=== PATIENT | male | born 1950 | race Caucasian/White ===

== ENCOUNTER 2017-12-03 04:06 | Outpatient (CLI) | payer MEDICARE, BC | END 2017-12-03 23:59 | disposition home or self-care (01) | LOC: DIABETIC 04:06 | PROVIDERS: ATTEND Family Medicine | DX: E11.9 Type 2 diabetes mellitus without complications (principal) | CPT/HCPCS: G0108 ==

== ENCOUNTER 2018-03-09 02:03 | Outpatient (CLI) | payer MEDICARE, BC | END 2018-03-09 23:59 | disposition home or self-care (01) | LOC: DIABETIC 02:03 | PROVIDERS: ATTEND Family Medicine | DX: E11.65 Type 2 diabetes mellitus with hyperglycemia (principal) | CPT/HCPCS: G0108 ==

== ENCOUNTER 2018-06-10 00:31 | Outpatient (CLI) | payer MEDICARE, BC | END 2018-06-10 23:59 | disposition home or self-care (01) | LOC: DIABETIC 00:31 | PROVIDERS: ATTEND Family Medicine | DX: E11.65 Type 2 diabetes mellitus with hyperglycemia (principal); Z79.82 Long term (current) use of aspirin; Z79.84 Long term (current) use of oral hypoglycemic drugs; Z79.899 Other long term (current) drug therapy | CPT/HCPCS: G0108 ==

== ENCOUNTER 2018-09-03 00:20 | Outpatient (CLI) | payer MEDICARE, BC | END 2018-09-03 23:59 | disposition home or self-care (01) | LOC: DIABETIC 00:20 | PROVIDERS: ATTEND Family Medicine | DX: E11.65 Type 2 diabetes mellitus with hyperglycemia (principal); Z79.82 Long term (current) use of aspirin; Z79.84 Long term (current) use of oral hypoglycemic drugs; Z79.899 Other long term (current) drug therapy; Z88.8 Allergy status to other drugs, medicaments and biological substances | CPT/HCPCS: G0108 ==

== ENCOUNTER 2018-12-08 02:15 | Outpatient (CLI) | payer MEDICARE, BC | END 2018-12-08 23:59 | disposition home or self-care (01) | LOC: DIABETIC 02:15 | PROVIDERS: ATTEND Family Medicine | DX: E11.9 Type 2 diabetes mellitus without complications (principal); Z79.82 Long term (current) use of aspirin; Z79.84 Long term (current) use of oral hypoglycemic drugs; Z79.899 Other long term (current) drug therapy; Z88.8 Allergy status to other drugs, medicaments and biological substances | CPT/HCPCS: G0108 ==

== ENCOUNTER 2019-03-15 02:26 | Outpatient (CLI) | payer MEDICARE, BC | END 2019-03-15 23:59 | disposition home or self-care (01) | LOC: DIABETIC 02:26 | PROVIDERS: ATTEND Family Medicine | DX: E11.9 Type 2 diabetes mellitus without complications (principal); Z79.84 Long term (current) use of oral hypoglycemic drugs; Z79.899 Other long term (current) drug therapy; Z91.048 Other nonmedicinal substance allergy status | CPT/HCPCS: G0108 ==

== ENCOUNTER 2019-06-14 00:39 | Outpatient (CLI) | payer MEDICARE, BC | END 2019-06-14 23:59 | disposition home or self-care (01) | LOC: DIABETIC 00:39 | PROVIDERS: ATTEND Family Medicine | DX: E11.9 Type 2 diabetes mellitus without complications (principal); Z79.84 Long term (current) use of oral hypoglycemic drugs; Z79.82 Long term (current) use of aspirin; Z79.899 Other long term (current) drug therapy | CPT/HCPCS: G0108 ==

== ENCOUNTER 2024-09-13 05:47 | Day surgery (SDC) | payer MEDICARE, BC ==
[2024-09-09 10:27] LABS: BASOPHILS % (AUTO) 0.5 % (0-1); EOSINOPHILS # (AUTO) 0.1 X10'3 (0-0.9); EOSINOPHILS % (AUTO) 1.6 % (0-6); LYMPHOCYTES # (AUTO) 1.6 X10'3 (1.1-4.8); LYMPHOCYTES % (AUTO) 23.3 % (21-51); MEAN CORPUSCULAR HEMOGLOBIN 29.2 PG (27.0-31.0); MEAN CORPUSCULAR HGB CONC 33.4 g/dL (33.0-36.5); MEAN CORPUSCULAR VOLUME 87.4 FL (78-98); MEAN PLATELET VOLUME 9.2 FL (7.4-10.4); MONOCYTES # (AUTO) 0.6 X10'3 (0-0.9); NEUTROPHILS # (AUTO) 4.5 X10'3 (1.8-7.7); NEUTROPHILS % (AUTO) 65.6 % (42-75); PRE OP HEMATOCRIT 40.6 % (42.0-52.0); PRE OP HEMOGLOBIN 13.5 g/dL (14.0-17.9); PRE OP PLATELET COUNT 192 X10'3 (140-440); PRE OP WHITE BLOOD COUNT 6.9 10'3 (4.8-10.8); RED BLOOD COUNT 4.64 X10'6 (4.70-6.10); RED CELL DISTRIBUTION WIDTH 13.7 % (11.5-14.5)
[2024-09-09 10:37] LABS: ALBUMIN 3.8 G/DL (3.4-5.0); ALBUMIN/GLOBULIN RATIO 1.1 (1.1-1.5); ALKALINE PHOSPHATASE 61 IU/L (46-116); BLOOD UREA NITROGEN 24 MG/DL (7-18); BUN/CREATININE RATIO 26.7 (10.0-20.0); CALCIUM 9.2 MG/DL (8.5-10.1); CHLORIDE 105 MMOL/L (99-107); PRE OP ALT 33 U/L (30-65); PRE OP ANION GAP 8 (8-16); PRE OP AST 19 U/L (10-37); PRE OP BILIRUB, TOTAL 1.5 MG/DL (0.0-1.0); PRE OP GLUCOSE 134 MG/DL (70-104); PRE OP POTASSIUM 4.2 MMOL/L (3.4-5.1); PRE OP SODIUM 141 MMOL/L (135-145); TOTAL CARBON DIOXIDE 27.7 MMOL/L (24-32); TOTAL PROTEIN 7.2 G/DL (6.4-8.2); eGFR 82 ML/MIN
[2024-09-13] VITALS (8 sets, daily range): BP systolic 122–152; BP diastolic 70–81; PULSE 55–72; RESP 9–16; TEMP 98.3; O2SAT 94–97
[~2024-09-13] VITALS: Ht 182.9 cm; Wt 99.6 kg
[~2024-09-13 05:47] MED LIST: AMLO1CAP5 PO; CITRACAL; DUTA0.5C36 PO; FLO0.4C PO; FLUT16SP2 BOTHNARES; METF-438 PO; MULT-1085 PO; OMEGA 3 FISH OIL; OMEP20CA16 PO; ROSU5TAB51 PO; SITA100T15 PO; VIT C; VIT D3
[2024-09-13] MEDS: famotidine 20mg tablet PO ONE (06:22)
[2024-09-13] MEDS: ringers solution, lacted 1,000 ML IV SCH (06:22)
[2024-09-13] MEDS: ceFAZolin 2gm in dextrose, iso 50 ML IV ONE (06:23)
[2024-09-13] MEDS ORDERED: BUPIVAcaine 2.5mg/ml inj 50ml vial (contains preservative) ONE (06:59)
[2024-09-13] MEDS ORDERED: LIDOcaine 2% (20mg/ml) 5ml vial ONE (06:59)
[2024-09-13] MEDS ORDERED: meperidine/PF 25mg/ml syringe IV PRN ×3 (08:05)
[2024-09-13] MEDS ORDERED: morphine 2 MG/ML inj. syringe IV PRN (08:05)
[2024-09-13] MEDS ORDERED: acetaminophen 1,000mg/100ml IV 100 ML IV ONE (08:05)
[2024-09-13] MEDS ORDERED: ondansetron/PF 4mg/2ml inj IV PRN (08:05)
[2024-09-13] MEDS ORDERED: hydrALAZINE 20mg/ml inj. IV PRN (08:05)
[2024-09-13] MEDS ORDERED: labetalol 20mg/4ml (5mg/ml) syringe IV PRN (08:05)
[2024-09-13] MEDS ORDERED: morphine 4 MG/ML inj SYRINge IV PRN (08:05)
[2024-09-13] MEDS ORDERED: ringers solution, lacted 1,000 ML IV SCH (08:05)
[2024-09-13] MEDS ORDERED: proCHLORperazine 10 MG/2 ml inj IV PRN (08:05)
[2024-09-13] MEDS ORDERED: fentaNYL/PF 50MCG/1 ML 2ML syringe ONE (08:09)
[2024-09-13] MEDS ORDERED: midazolam 1 mg/ML 2ml injection ONE (08:09)
[2024-09-13] MEDS: BUPIVAcaine 2.5mg/ml inj 50ml vial (contains preservative) SQ ONE (08:23)
[2024-09-13] MEDS ORDERED: propofol inj 20 ML IV ONE (08:25)
== END 2024-09-13 09:36 | disposition home or self-care (01) ==
LOC: PAS 05:47
PROVIDERS: ATTEND Orthopaedic Surgery Hand Surgery
DX: M67.432 Ganglion, left wrist (principal); R94.31 Abnormal electrocardiogram [ECG] [EKG]; I10 Essential (primary) hypertension; E11.9 Type 2 diabetes mellitus without complications; E78.5 Hyperlipidemia, unspecified; K21.9 Gastro-esophageal reflux disease without esophagitis; Z79.84 Long term (current) use of oral hypoglycemic drugs; Z79.891 Long term (current) use of opiate analgesic; Z79.899 Other long term (current) drug therapy; Z90.49 Acquired absence of other specified parts of digestive tract; Z98.890 Other specified postprocedural states; Z80.9 Family history of malignant neoplasm, unspecified
CPT/HCPCS: 25111; 36415; 80053; 82948; 85025; 93005; A4215; A4618; A6402; A6446; A6449; A7000; J0690; J2003; J2250; J2704; J3010; J3490; J7030; J7120; Z7506; Z7512; Z7610